=== PATIENT | male | born 1960 | race Caucasian/White ===

== ENCOUNTER 2023-02-10 21:57 | Emergency (ER) | payer SELFPAY ==
[2023-02-10 22:22] VITALS: BP 157/90; PULSE 76
[2023-02-10 23:08] LABS: BASOPHILS ABSOLUTE AUTO 0.05 K/uL (0.02-0.10); BASOPHILS PERCENT AUTO 0.4 % (0.0-0.5); EOSINOPHILS ABSOLUTE AUTO 0.29 K/uL (0.04-0.40); EOSINOPHILS PERCENT AUTO 2.4 % (1.0-5.0); HEMATOCRIT 34.4 % (40.0-54.0); HEMOGLOBIN 11.3 g/dL (13.0-18.0); LYMPHOCYTES ABSOLUTE AUTO 2.49 K/uL (1.50-4.00); LYMPHOCYTES PERCENT AUTO 20.9 % (20.0-40.0); MEAN CORPUSCULAR HEMOGLOBIN 31.5 pg (27.0-32.0); MEAN CORPUSCULAR HGB CONC 32.8 g/dL (31.0-35.0); MEAN CORPUSCULAR VOLUME 96 fL (76-96); MEAN PLATELET VOLUME 8.8 fL (6.0-10.0); MONOCYTES ABSOLUTE AUTO 1.33 K/uL (0.20-0.80); MONOCYTES PERCENT AUTO 11.2 % (3.0-10.0); NEUTROPHILS ABSOLUTE AUTO 7.75 K/uL (2.00-7.50); NEUTROPHILS PERCENT AUTO 65.1 % (45.0-70.0); PLATELET COUNT,PLT 362 K/uL (150-400); RED BLOOD CELL COUNT 3.59 M/uL (4.50-6.50); RED CELL DISTRIBUTION WIDTH 14.1 % (11.0-16.0); WHITE BLOOD CELL COUNT,WBC 11.9 K/uL (4.0-11.0)
[2023-02-10 23:21] LABS: ANION GAP 15.3 mmol/L (5.0-15.0); C-REACTIVE PROTEIN 106.1 mg/L (0.0-3.0); CALCIUM 8.7 mg/dL (8.5-10.1); CARBON DIOXIDE,CO2 25.2 mmol/L (21.0-32.0); CREATININE 1.4 mg/dL (0.70-1.30); POTASSIUM,K 4.5 mmol/L (3.5-5.1)
[2023-02-10] MEDS: cefTRIAXone 1 GM Vial ONE (23:51)
[2023-02-10] MEDS: cefTRIAXone 1 GM Vial IM SCH (23:52)
== END 2023-02-10 23:53 | disposition home or self-care (01) ==
LOC: LB.ED 21:57
DX: L03.116 Cellulitis of left lower limb (principal); I12.9 Hypertensive chronic kidney disease with stage 1 through stage 4 chronic kidney disease, or unspecified chronic kidney disease; E11.22 Type 2 diabetes mellitus with diabetic chronic kidney disease; N18.30 Chronic kidney disease, stage 3 unspecified; Z79.84 Long term (current) use of oral hypoglycemic drugs
CPT/HCPCS: 36415; 80048; 84550; 85025; 86140; 96372; 99283; J0696